=== PATIENT | female | born 1975 | race African-American/Black ===

== ENCOUNTER 2017-07-30 16:27 | Emergency (ER) | payer OTHER ==
[2017-07-30] MEDS ORDERED: Ketorolac Tromethamine 30 MG/ML VIAL ONE (17:43)
--- NOTE | 2017-07-30 18:50 | RAD ---
RIGHT SHOULDER THREE VIEWS: History: Right shoulder pain. FINDINGS: Minimal arthritic changes of the AC joint are noted. There are no signs of fracture or dislocation. IMPRESSION: No acute findings. POS: [facility]
--- NOTE | 2017-07-30 18:56 | RAD ---
CHEST ONE VIEW: History: Chest pain, right arm pain. Comparison: 08-13-13 FINDINGS: Heart size is within normal limits for portable technique. Mediastinal structures appear unremarkabl e. The lungs are clear of infiltrates. No bony findings. IMPRESSION: No active intrathoracic disease. POS: [facility]
== END 2017-07-30 18:52 | disposition home or self-care (01) ==
LOC: ERS 16:27
DX: M75.91 Shoulder lesion, unspecified, right shoulder (principal); I10 Essential (primary) hypertension; Z79.899 Other long term (current) drug therapy
CPT/HCPCS: 71010; 93005; 96372; J1885

== ENCOUNTER 2017-12-31 15:51 | Emergency (ER) | payer OTHER ==
[~2017-12-31 15:51] MED LIST: ISOVUE-370 76%-LOCM 1 ML ONE; Iopamidol 370 76% 50 ML VIAL FS ONE
[2017-12-31] MEDS ORDERED: Acetaminophen/Codeine 30-300mg Tablet ONE (16:57)
[2017-12-31 16:58] LABS: Hemoglobin 11.6 g/dL (12.0-16.0); Mean Corpuscular Hemoglobin 24.7 pg (27.0-31.0); Mean Corpuscular Volume 74.9 fl (81.0-99.0); Mean Platelet Volume 7.5 fL (7.4-10.4); Platelet Count 272 thou/uL (130-400); RBC Distribution Width 13.5 % (11.5-14.5); Red Blood Cell (RBC) Count 4.71 mill/uL (4.20-5.40); White Blood Cell (WBC) Count 5.8 thou/uL (4.8-10.8)
[2017-12-31 17:09] LABS: BHCG - Serum Negative (NEGATIVE); Pregs Control Background? CLEAR/WHITE (CLR/WHITE); Pregs Control Bar Appear? YES (CONTROL BAR)
[2017-12-31 17:13] LABS: Eosinophils 1 % (0-10); Hypochromia SLIGHT = 6-15 cells (100X) (0-5/hpf); Lymphocytes 59 % (21-51); MDiff Complete? YES; Microcytosis SLIGHT = 6-15 cells (100X) (0-5/hpf); Monocytes 4 % (0-10); Neutrophil 27 % (42-75); PLT Morphology Comment Appears Adequate; Reactive Lymphocytes 9 % (0-10)
[2017-12-31 17:20] LABS: ALT (SGPT) 10 U/L (8-55); AST (SGOT) 10 U/L (5-34); Albumin 3.8 g/dL (3.5-5.0); Alkaline Phosphatase 93 U/L (40-150); Anion Gap 10 mmol/L (10-20); BUN (Urea Nitrogen) 10 mg/dL (7.0-18.7); Bilirubin, Total Less than 0.2 mg/dL (0.2-1.2); CRP (Inflammatory) Less than 0.50 mg/dL (= or < 0.5); Calc. Creatinine Clearance 0 mL/min (70-130); Calcium 9.2 mg/dL (7.8-10.44); Carbon Dioxide 28 mmol/L (22-29); Chloride 107 mmol/L (98-107); Estimated GFR-MDRD Greater than 90; Globulin 3.2 g/dL (2.4-3.5); Glucose 96 mg/dL (70-105); Potassium 3.5 mmol/L (3.5-5.1); Sodium 141 mmol/L (136-145)
--- NOTE | 2017-12-31 19:03 | CT ---
CT ABDOMEN AND PELVIS WITH IV CONTRAST: Date: 12/31/17 HISTORY: Right lower quadrant abdominal pain for 1 week. COMPARISON: 05/02/17. FINDINGS: There are minimal ground-glass densities at each lung base, probably related to mild atelectasis. Hannah g bases are otherwise clear. Post cholecystectomy changes are again present. The liver, spleen, pancreas, bilateral adrenal glands, kidneys, abdominal aorta, and urinary bladder demonstrate a normal CT appearance. Incidental note is made of a retroaortic left renal vein. Opacified small bowel is normal in caliber. The appendix is visualized and normal in caliber. Uterus is not visualized, likely related to a hysterectomy. A few colonic diverticula are seen. The previously noted fluid and air collection in the pelvis, as well as inflammatory changes in the p nathan, have resolved when compared to the prior exam. There is a prominent fat-containing ventral her piter in the lower pelvis which is at the level of surgical scarring in an infraumbilical location. Postsurgical changes left femur are visualized. IMPRESSION: 1. No acute findings are seen in the abdomen or pelvis. 2. Resolution of the pelvic abscess collection, as well as inflammatory changes noted on prior study . 3. Fat-containing ventral hernia in lower pelvis. 4. Post cholecystectomy changes. 5. No CT evidence of appendicitis. 6. Mass-like structure right hemipelvis, likely related to right ovary. Structure was seen in this r egion on prior study which contained a cyst. POS: [facility]
--- NOTE | 2017-12-31 20:37 | ULT ---
PELVIC ULTRASOUND: Date: 12/31/17 HISTORY: Right ovarian mass versus cyst. FINDINGS: Multiple endovaginal sonographic images of the pelvis are obtained. The uterus is not visualized, related to hysterectomy. The left ovary is not seen. Patient reports hi story of a left oophorectomy. Right ovary is visualized with a few peripheral follicles seen. The right ovary measures 3.1 cm x 2.9 cm x 2.8 cm. Doppler evaluation of the right ovary with spectral analysis and color flow evaluation demonstrates a rterial and venous flow. There is suggestion of a very tiny amount of free fluid in the cul-de-sac. This is not appreciated on recent CT scan exam. IMPRESSION: 1. Normal appearing right ovary. No right adnexal mass or cystic lesion is seen. 2. Nonvisualization of the uterus and left ovary. There is evidence of hysterectomy on recent CT sca n examination. Patient reports left oophorectomy. 3. Tiny amount of free fluid in the pelvis, which may be physiologic in origin. POS: [facility]
== END 2017-12-31 22:31 | disposition home or self-care (01) ==
LOC: ERS 15:51
DX: K43.9 Ventral hernia without obstruction or gangrene (principal); I10 Essential (primary) hypertension
CPT/HCPCS: 36415; 74177; 76856; 80053; 83605; 84703; 85025; 86140; 96360; 96361

== ENCOUNTER 2018-02-19 09:47 | Outpatient (CLI) | payer OTHER | END 2018-02-19 09:48 | disposition home or self-care (01) | LOC: BICMAMMO 09:47 | PROVIDERS: ATTEND Obstetrics & Gynecology | DX: Z12.31 Encounter for screening mammogram for malignant neoplasm of breast (principal) | CPT/HCPCS: 77063; 77067 ==

== ENCOUNTER 2018-11-07 07:23 | Emergency (ER) | payer OTHER ==
[2018-11-07 07:51] LABS: Bilirubin Small (Negative); Blood, Urine Large (Negative); Clarity TURBID (Clear); Glucose, Urine (Dipstick) Negative (Negative); Leukocyte Large (Negative); Nitrite Positive (Negative); Protein, Urine (Dipstick) 30 mg/dL (Neg-Trace); Specific Gravity, Urine 1.017 (1.002-1.036)
[2018-11-07 07:54] LABS: Bacteria/HPF 4+ HPF (None Seen); Hyaline Casts/LPF 0-3 HYALINE CAST LPF (0-3 Hyaline); Pathc Cast-AUWi Flag 0.26 (0-2.49); RBC/HPF GREATER THAN 50-TNTC HPF (0-3); Squamous Epithelial 0-3 HPF (0-3)
[2018-11-07 08:08] LABS: #Monocytes 0.7 thou/uL (0.11-0.59); #Neutrophils 6.7 thou/uL (1.40-6.50); %Basophils 0.2 % (0.0-1.0); %Eosinophils 0.1 % (0.0-10.0); %Lymphocytes 11.8 % (21.0-51.0); %Monocytes 8.2 % (0.0-10.0); %Neutrophils 79.7 % (42.0-75.0); BHCG - Serum Negative (NEGATIVE); Hemoglobin 11.8 g/dL (12.0-16.0); Mean Corpuscular HGB CONC 31.3 g/dL (32.0-36.0); Mean Corpuscular Hemoglobin 22.9 pg (27.0-31.0); Mean Platelet Volume 9.4 fL (7.4-10.4); Platelet Count 169 thou/uL (130-400); Pregs Control Background? CLEAR/WHITE (CLR/WHITE); Pregs Control Bar Appear? YES (CONTROL BAR); RBC Distribution Width 13.4 % (11.5-14.5); Red Blood Cell (RBC) Count 5.16 mill/uL (4.20-5.40); White Blood Cell (WBC) Count 8.4 thou/uL (4.8-10.8)
[2018-11-07] MEDS ORDERED: Dicyclomine 20 MG TAB ONE (08:09)
[2018-11-07] MEDS ORDERED: Metoclopramide HCl 10 MG/2 ML VIAL ONE (08:09)
[2018-11-07 08:22] LABS: ALT (SGPT) 9 U/L (8-55); AST (SGOT) 12 U/L (5-34); Albumin 3.6 g/dL (3.5-5.0); Alkaline Phosphatase 82 U/L (40-150); Anion Gap 15 mmol/L (10-20); BUN (Urea Nitrogen) 5 mg/dL (7.0-18.7); Bilirubin, Total 0.6 mg/dL (0.2-1.2); Calc. Creatinine Clearance 0 mL/min (70-130); Carbon Dioxide 25 mmol/L (22-29); Chloride 103 mmol/L (98-107); Estimated GFR-MDRD Greater than 90; Globulin 3.4 g/dL (2.4-3.5); Glucose 111 mg/dL (70-105); Lipase Less than 4 U/L (8-78); Sodium 140 mmol/L (136-145)
[2018-11-07 08:31] LABS: Potassium 2.6 mmol/L (3.5-5.1)
[2018-11-07 08:42] LABS: MDiff Complete? YES; Microcytosis SLIGHT = 6-15 cells (100X) (0-5/hpf); Platelet Morphology Comment Appears Adequate; Polychromasia SLIGHT = 2-3 cells (100X) (0-2/hpf)
[2018-11-07] MEDS ORDERED: Ketorolac Tromethamine 30 MG/ML VIAL ONE (08:58)
[2018-11-07] MEDS ORDERED: Ondansetron PF 4 MG/2 ML Vial ONE (08:58)
[2018-11-07] MEDS ORDERED: Pot Chloride/Pot Bicarb/Cit Ac 25 mEq Effervescent Tablet ONE (09:45)
[2018-11-07] MEDS ORDERED: Ciprofloxacin 500 MG TAB ONE (09:45)
--- NOTE | 2018-11-07 09:47 | CT ---
ABDOMEN AND PELVIC CT SCAN WITHOUT IV CONTRAST: History: Right flank pain and hematuria. Comparison: 12-31-17 FINDINGS: The lung bases are clear. Post op cholecystectomy without ductal dilatation. Pancreas and spleen are unremarkable. 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 There is enlargement of the left kidney when compared to prior exams. There is some perirenal fat stranding. There is very slight fullness of the left upper renal collecting system but without evidence to suggest acute obstruction. No won l calculus or ureteral calculus. Borderline sized right ovary with a right ovarian cyst measuring up to approximately 2.9 cm. Normal appearing appendix. Stable inferior anterior abdominal wall fat conta ining hernia. No evidence of bowel obstruction. No abscess or abnormal fluid collection. IMPRESSION: Enlargement of the left kidney with some perirenal fat stranding since the prior exam raising concern for acute infection such as pyelonephritis versus other infection/inflammation etiologies. No eviden ce for obstructing calculus. Stable enlarged adrenal glands, particularly on the left side. Stable inferior anterior abdominal wall fat containing hernia. Stable borderline sized right ovary includin g a right ovarian cyst. No significant abscess or abnormal fluid collection. If patient's symptoms do not resolve or worsen, follow up additional imaging should be considered. POS: [facility]
== END 2018-11-07 10:17 | disposition home or self-care (01) ==
LOC: ERS 07:23
DX: N12 Tubulo-interstitial nephritis, not specified as acute or chronic (principal); I10 Essential (primary) hypertension
CPT/HCPCS: 36415; 74176; 80053; 81003; 81015; 83690; 84484; 84703; 85025; 87077; 87086; 87186; 93005; 96365; 96375; J1885; J2405; J2765

== ENCOUNTER 2018-12-31 00:07 | Outpatient (CLI) | payer OTHER ==
[2018-12-31 13:58] LABS: #Basophils 0.1 thou/uL (0.0-0.2); #Eosinphils 0.1 thou/uL (0.0-0.7); #Lymphocytes 3.4 thou/uL (1.20-3.40); #Monocytes 0.5 thou/uL (0.11-0.59); #Neutrophils 3.2 thou/uL (1.40-6.50); %Basophils 1.1 % (0.0-1.0); %Eosinophils 1.8 % (0.0-10.0); %Lymphocytes 46.8 % (21.0-51.0); %Monocytes 6.2 % (0.0-10.0); Hemoglobin 13.3 g/dL (12.0-16.0); Mean Corpuscular HGB CONC 31.2 g/dL (32.0-36.0); Mean Corpuscular Hemoglobin 23.7 pg (27.0-31.0); Mean Corpuscular Volume 75.9 fL (78.0-98.0); Platelet Count 164 thou/uL (130-400); RBC Distribution Width 15.6 % (11.5-14.5); Red Blood Cell (RBC) Count 5.64 mill/uL (4.20-5.40); White Blood Cell (WBC) Count 7.3 thou/uL (4.8-10.8)
[2018-12-31 14:27] LABS: Anion Gap 11 mmol/L (10-20); BUN (Urea Nitrogen) 7 mg/dL (7.0-18.7); Calc. Creatinine Clearance 0 mL/min (70-130); Calcium 8.4 mg/dL (7.8-10.44); Carbon Dioxide 22 mmol/L (22-29); Chloride 109 mmol/L (98-107); Estimated GFR-MDRD Greater than 90; Glucose 97 mg/dL (70-105); Potassium 3.1 mmol/L (3.5-5.1); Sodium 139 mmol/L (136-145)
== END 2018-12-31 00:08 | disposition home or self-care (01) ==
LOC: LABBT 00:07
PROVIDERS: ATTEND Specialist
DX: Z01.818 Encounter for other preprocedural examination (principal); K43.2 Incisional hernia without obstruction or gangrene
CPT/HCPCS: 80048; 85025; 93005; 93010

== ENCOUNTER 2019-01-04 07:47 | Day surgery (SDC) | payer OTHER ==
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
[2018-12-31 12:15] VITALS: BMI 32.0
[2019-01-04] MEDS ORDERED: Bupivacaine/Epinephrine 0.25% 30 ML VIAL ONE (08:56)
[2019-01-04] MEDS ORDERED: Ketorolac Tromethamine 30 MG/ML VIAL ONE (08:56)
[2019-01-04] MEDS ORDERED: Midazolam HCl 2 mg/2 ml Vial ONE (09:47)
[2019-01-04] MEDS ORDERED: Fentanyl 250 MCG/5 ML VIAL ONE (09:47)
[2019-01-04] MEDS ORDERED: PHENYLEPHRINE-NS 100 MCG/ML 10 ML SYRINGE ONE (10:15)
[2019-01-04] MEDS ORDERED: ePHEDrine 50 MG/ML VIAL ONE (10:15)
[2019-01-04] MEDS ORDERED: PROPOFOL 200 MG/20 ML VIAL ONE (10:15)
[2019-01-04] MEDS ORDERED: Rocuronium Bromide 10 MG/ML (10ML VIAL) ONE (10:15)
[2019-01-04] MEDS ORDERED: Lidocaine 1% PF 5 ML VIAL ONE (10:15)
[2019-01-04] MEDS ORDERED: Ondansetron PF 4 MG/2 ML Vial ONE (10:15)
[2019-01-04] MEDS ORDERED: Glycopyrrolate 0.2 MG/ML 5 ML SYRINGE ONE (10:15)
[2019-01-04] MEDS ORDERED: Fentanyl 100 MCG/2 ML VIAL ONE ×2 (12:27→12:54)
[2019-01-04] MEDS ORDERED: Ondansetron HCl/PF 4 MG/2 ML Vial IVP PRN (12:35)
[2019-01-04] MEDS ORDERED: Morphine 4 MG/ML VIAL SLOW IVP PRN (12:35)
[2019-01-04] MEDS ORDERED: Morphine Sulfate 2 MG/ML SYRINGE SLOW IVP PRN (12:35)
[2019-01-04] MEDS ORDERED: Promethazine HCl 25 MG/ML VIAL IM/IV PRN (12:35)
[2019-01-04] MEDS ORDERED: Non-Formulary Medication 1 EACH PO PRN (12:35)
--- NOTE | 2019-01-04 13:35 | OP ---
DATE OF PROCEDURE: 01/04/2019 PREOPERATIVE DIAGNOSIS: Incisional hernia located between the umbilicus and pubis from previous and hysterectomy. POSTOPERATIVE DIAGNOSIS: Incisional hernia located between the umbilicus and pubis from previous and hysterectomy. PROCEDURES PERFORMED: Robot laparoscopic repair of incisional hernia with primary fascial closure, reinforcement with 9 cm elliptical mesh, adhesiolysis. Note, small serosal defect closed transversely with continuous suture of 3-0 V-Loc and omental reinforcement coverage. ANESTHESIA: General, local of 0.5% Marcaine with epinephrine 30 mL. DESCRIPTION OF PROCEDURE: The patient was taken to the operating room, where general anesthesia, Butt catheter was placed at the beginning of the procedure and removed at the end. Abdomen was clipped of hair, prepared with ChloraPrep and draped in routine fashion. Local anesthetic was infiltrated in the skin and subcutaneous tissue about all port sites. Supraumbilical left of midline incision was made and pneumoperitoneum to 15 mmHg was obtained with a Veress needle, replaced with an 11 mm balloon port and bilateral far lateral and mid lateral abdominal incision was made and an 8 mm port was placed. Robot docked and adhesiolysis undertaken freeing omental adhesions from the midline down towards the pubis. Once these were all freed, it was noted the sigmoid colon had a small longitudinal serous defect and this was closed transversely with continuous 3-0 V-Loc suture and this was covered with omentum. Stool was not spilled. Mucosa was not violated. At this point, the fascial defect was closed with continuous suture of #1 V-Loc and after pneumoperitoneum reduced to 9 mmHg. After this was accomplished, the 9 cm round Ventralight mesh properly oriented with the coated side against the viscera secured centered over the defect, approximated the abdominal wall with continuous suture of 3-0 V-Loc. All sutures were removed. Good hernia repair was appreciated. Pneumoperitoneum was irrigated and evacuated and all skin incisions were approximated with interrupted subdermal 4-0 Monocryl and [place] glue applied. Job ID: [id number]
== END 2019-01-04 15:00 | disposition home or self-care (01) ==
LOC: SDC 07:47
PROVIDERS: ATTEND Specialist
PROC: 0WUF4JZ Supplement Abdominal Wall with Synthetic Substitute, Percutaneous Endoscopic Approach (ICD-10-PCS; principal; 2019-01-04)
DX: K43.2 Incisional hernia without obstruction or gangrene (principal); Z90.710 Acquired absence of both cervix and uterus; Z98.890 Other specified postprocedural states
CPT/HCPCS: C1781; J0131; J1885; J2250; J3010

== ENCOUNTER 2019-05-23 21:42 | Emergency (ER) | payer OTHER ==
[2019-05-23 23:04] LABS: #Eosinphils 0.3 thou/uL (0.0-0.7); #Lymphocytes 3.4 thou/uL (1.20-3.40); #Monocytes 0.6 thou/uL (0.11-0.59); #Neutrophils 3.2 thou/uL (1.40-6.50); %Basophils 0.2 % (0.0-1.0); %Eosinophils 3.4 % (0.0-10.0); %Lymphocytes 45.1 % (21.0-51.0); %Monocytes 7.8 % (0.0-10.0); %Neutrophils 43.5 % (42.0-75.0); Hemoglobin 11.9 g/dL (12.0-16.0); Mean Corpuscular HGB CONC 32.6 g/dL (32.0-36.0); Mean Corpuscular Hemoglobin 24.5 pg (27.0-31.0); Mean Corpuscular Volume 75.1 fL (78.0-98.0); Mean Platelet Volume 8.3 fL (7.4-10.4); Platelet Count 261 thou/uL (130-400); RBC Distribution Width 14.6 % (11.5-14.5); Red Blood Cell (RBC) Count 4.88 mill/uL (4.20-5.40); White Blood Cell (WBC) Count 7.4 thou/uL (4.8-10.8)
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
[2019-05-23 23:09] LABS: BHCG - Serum Negative (NEGATIVE); Pregs Control Background? CLEAR/WHITE (CLR/WHITE); Pregs Control Bar Appear? YES (CONTROL BAR)
[2019-05-23 23:26] LABS: ALT (SGPT) 10 U/L (8-55); AST (SGOT) 11 U/L (5-34); Albumin 3.6 g/dL (3.5-5.0); Alkaline Phosphatase 82 U/L (40-150); Anion Gap 11 mmol/L (10-20); BUN (Urea Nitrogen) 9 mg/dL (7.0-18.7); Bilirubin, Total Less than 0.2 mg/dL (0.2-1.2); Calc. Creatinine Clearance 0 mL/min (70-130); Carbon Dioxide 25 mmol/L (22-29); Chloride 108 mmol/L (98-107); Estimated GFR-MDRD Greater than 90; Globulin 2.9 g/dL (2.4-3.5); Glucose 74 mg/dL (70-105); Lipase 73 U/L (8-78); Potassium 3.6 mmol/L (3.5-5.1); Protein, Total 6.5 g/dL (6.0-8.3); Sodium 140 mmol/L (136-145)
[2019-05-23] MEDS ORDERED: Aspirin Chewable 81 MG TAB ONE (23:33)
== END 2019-05-23 23:51 | disposition home or self-care (01) ==
LOC: ERS 21:42
DX: R07.9 Chest pain, unspecified (principal); I10 Essential (primary) hypertension; D64.9 Anemia, unspecified; V89.2XXA Person injured in unspecified motor-vehicle accident, traffic, initial encounter
CPT/HCPCS: 36415; 71046; 80053; 83690; 84484; 84703; 85025; 93005

== ENCOUNTER 2019-11-11 10:33 | Outpatient (CLI) | payer OTHER ==
--- NOTE | 2019-11-11 11:19 | MMO ---
Bilateral MAMMO Bilat Diag [facility]AT. CLINICAL HISTORY: Patient is 43 years old and is seen for diagnostic exam,palpable abnormality and non-bloody discharge in the left breast. The patient has no family history of breast cancer. The patient has no personal history of cancer. VIEWS: The views performed were: bilateral craniocaudal with tomosynthesis; bilateral mediolateral oblique with tomosynthesis; and bilateral mediolateral with tomosynthesis. FILMS COMPARED: The present examination has been compared to prior imaging studies performed at [facility] on 11/07/2003, 08/19/2015, 02/19/2018 and 11/11/2019. This study has been interpreted with the assistance of computer-aided detection. MAMMOGRAM FINDINGS: There are scattered fibroglandular densities. Benign calcifications are noted bilaterally. There are no suspicious masses, suspicious calcifications, or new areas of architectural distortion. IMPRESSION: THERE IS NO MAMMOGRAPHIC EVIDENCE OF MALIGNANCY. A ROUTINE FOLLOW-UP MAMMOGRAM IN 1 YEAR IS RECOMMENDED. THE RESULTS OF THIS EXAM WERE SENT TO THE PATIENT. ACR BI-RADS Category 2 - Benign finding MAMMOGRAPHY NOTE: 1. A negative mammogram report should not delay a biopsy if a dominant of clinically suspicious mass is present. 2. Approximately 10% to 15% of breast cancers are not detected by mammography. 3. Adenosis and dense breasts may obscure an underlying neoplasm. Reported by: ROMINA EGAN MD Electonically Signed: [id number]
--- NOTE | 2019-11-11 12:39 | ULT ---
Left breast ultrasound: HISTORY: Palpable nodule at the 9 o'clock position of the left breast and a brownish left nipple discharge. FINDINGS: Correlation is made with the mammogram of the same day. FINDINGS: There is no evidence of a mass at the region of palpable concern at the 9 o'clock position of the lef t breast. The retroareolar region of the left breast demonstrates no abnormally dilated ducts. IMPRESSION: 1. BIRADS category 2 - benign findings. Return to annual mammographic screening. 2. If there is concern for a bloody discharge, further evaluation with bilateral breast MRI (with an d without IV contrast) is recommended. POS: [facility]
== END 2019-11-11 10:34 | disposition home or self-care (01) ==
LOC: BICMAMMO 10:33
PROVIDERS: ATTEND Obstetrics & Gynecology
DX: N64.4 Mastodynia (principal); N64.52 Nipple discharge
CPT/HCPCS: 77066; G0279

== ENCOUNTER 2019-12-24 06:58 | Emergency (ER) | payer OTHER ==
[2019-12-24] MEDS ORDERED: Ibuprofen 800 MG TAB ONE (07:39)
[2019-12-24 07:54] LABS: Bilirubin Negative (Negative); Blood, Urine Negative (Negative); Clarity Clear (Clear); Glucose, Urine (Dipstick) Normal (Negative); Leukocyte Negative Leu/uL (Negative); Nitrite Negative (Negative); Protein, Urine (Dipstick) Negative (Neg-Trace); Urobilinogen Normal mg/dL (Less than 2)
--- NOTE | 2019-12-24 09:40 | ULT ---
PELVIC ULTRASOUND: DATE: 12/24/2019. COMPARISON: 12/31/2017. HISTORY: Right lower quadrant pain, history of hysterectomy and left oophorectomy. TECHNIQUE: Multiplanar, rucker scale, sonographic imaging of the pelvis obtained with transabdominal and endovagin al imaging. FINDINGS: There is a heterogeneously hypoechoic lesion in the right adnexal region/right hemipelvis. This lesi on is primarily homogeneously hypoechoic and contains internal thin septations. This lesion measures approximately 4.0 x 4.6 x 3.9 cm and demonstrates no internal blood flow. It appears to be ovarian in nature as there is a thin halo of surrounding soft tissue density which likely represents right ov stephane tissue. When measuring the right ovary including this lesion, the right ovary measures 5.3 x 4 .2 x 4.2 cm and demonstrates normal blood flow. No free fluid in the pelvis. The uterus and the lef t ovary are not visualized. IMPRESSION: Complex heterogeneously hypoechoic lesion in the right hemipelvis. This is favored to represent a he morrhagic cyst associated with the right ovary. Recommend a followup pelvic ultrasound in 6 weeks to document resolution. POS: [facility]
== END 2019-12-24 10:25 | disposition home or self-care (01) ==
LOC: ERS 06:58
DX: N83.201 Unspecified ovarian cyst, right side (principal); I10 Essential (primary) hypertension; D64.9 Anemia, unspecified
CPT/HCPCS: 76856; 81003

== ENCOUNTER 2024-06-27 07:31 | Emergency (ER) | payer OTHER, SELFPAY ==
[2024-06-27] MEDS ORDERED: Ketorolac Tromethamine 30 MG (1 mL) VIAL ONE (08:07)
[2024-06-27] MEDS ORDERED: traMADol HCl 50 MG TAB ONE (09:03)
[2024-06-27] MEDS ORDERED: Acetaminophen/Codeine 30-300mg Tablet ONE (09:09)
== END 2024-06-27 09:20 | disposition home or self-care (01) ==
LOC: ERS 07:31
DX: S70.02XA Contusion of left hip, initial encounter (principal); M54.50 Low back pain, unspecified; E11.9 Type 2 diabetes mellitus without complications; Z79.84 Long term (current) use of oral hypoglycemic drugs; V89.2XXA Person injured in unspecified motor-vehicle accident, traffic, initial encounter
CPT/HCPCS: 72131; 96374; J1885